=== PATIENT | male | born 1985 | race Caucasian/White ===

== ENCOUNTER 2018-02-17 05:18 | Emergency (ER) | payer SELFPAY ==
[~2018-02-17] VITALS: Ht 182.9 cm; Wt 90.7 kg
[2018-02-17 05:54] LABS: EOSINOPHILS % 2.9 % (0.0-5.0); HEMATOCRIT. 35.4 % (42.0-52.0); HEMOGLOBIN. 11.8 g/dL (14.0-18.0); LYMPHOCYTES % 12.6 % (20.0-50.0); MEAN CORPUSCULAR HEMOGLOBIN 29.8 pg (28.0-32.0); MEAN CORPUSCULAR VOLUME 89.3 fL (80.0-94.0); MEAN PLATELET VOLUME 7.4 fl (7.4-10.4); MONOCYTES % 8.7 % (2.0-8.0); NEUTROPHILS % 74.8 % (40.0-76.0); PLATELET 241 x1000/uL (130-400); RED BLOOD CELL COUNT 3.97 mill/uL (4.7-6.1); RED CELL DISTRIBUTION WIDTH 12.8 % (11.6-14.6)
[2018-02-17 05:59] LABS: CHLORIDE 104 mEq/L (98-107)
[2018-02-17 06:00] LABS: INR 1.2; PROTHROMBIN TIME 12.4 sec (9.4-11.6)
[2018-02-17 06:03] LABS: ETHANOL BLOOD < 10 mg/dL
[2018-02-17] MEDS ORDERED: SODIUM CHLORIDE 0.9% 1,000 ML IV ONE (06:41)
[2018-02-17] MEDS ORDERED: NALOXONE HCL 0.4 MG/ML 1ML VIAL IV PRN (06:45)
[2018-02-17 06:54] LABS: CLARITY URINE CLEAR (CLEAR); COLOR URINE YELLOW (YELLOW); KETONES URINE NEGATIVE (NEGATIVE); LEUKOCYTE ESTERASE URINE NEGATIVE (NEGATIVE); NITRITE URINE NEGATIVE (NEGATIVE); OCCULT BLOOD URINE NEGATIVE (NEGATIVE); PROTEIN URINE NEGATIVE (NEGATIVE); UROBILINOGEN URINE 0.2 E.U./dL (0.2-1.0)
[2018-02-17 07:14] LABS: *BENZODIAZEPINES SCREEN URINE PRESUMTIVE POSITIVE (NEGATIVE); *COCAINE SCREEN URINE PRESUMTIVE POSITIVE (NEGATIVE)
[2018-02-17 07:15] LABS: *AMPHETAMINES SCREEN URINE NEGATIVE (NEGATIVE); *BARBITURATES SCREEN URINE NEGATIVE (NEGATIVE); CANNABINOID URINE SCREEN NEGATIVE (NEGATIVE); METHADONE URINE SCREEN NEGATIVE (NEGATIVE); OPIATES URINE SCREEN PRESUMTIVE POSITIVE (NEGATIVE); PHENCYCLIDINE URINE SCREEN NEGATIVE (NEGATIVE)
[2018-02-17 09:30] VITALS: BP 138/91
== END 2018-02-17 12:27 | disposition home or self-care (01) ==
LOC: ER 05:18 → EDBD 05:18 → ER 12:27
DX: T40.1X1A Poisoning by heroin, accidental (unintentional), initial encounter (principal); T40.5X1A Poisoning by cocaine, accidental (unintentional), initial encounter; T42.4X1A Poisoning by benzodiazepines, accidental (unintentional), initial encounter; R41.82 Altered mental status, unspecified; F17.200 Nicotine dependence, unspecified, uncomplicated; F14.10 Cocaine abuse, uncomplicated; Y92.488 Other paved roadways as the place of occurrence of the external cause
CPT/HCPCS: 36415; 80053; 80305; 80307; 80329; 81003; 84443; 85025; 85610; 96361; 96374; 99285; G0482; J2310; J7030; J7040; Z7610